=== PATIENT | male | born 1950 | race Caucasian/White ===

== ENCOUNTER 2017-10-27 05:31 | Observation (INO) | payer OTHER ==
[2017-10-19 09:32] VITALS: BP 112/56
[2017-10-25 09:27] LABS: ANION GAP 5 mmol/L (5-15); CHLORIDE 99 mmol/L (98-107); CREATININE 1.14 mg/dL (0.7-1.3)
[~2017-10-27] VITALS: Ht 182.9 cm; Wt 90.0 kg
[~2017-10-27 05:31] MED LIST: ASPI-496 PO; ATOR10TA9 PO; CYCL-259 PO; LISI5TAB7 PO; METF500T5 PO; OXYC1TAB7 PO; PREG75CA PO
[2017-10-27] MEDS ORDERED: LIDOCAINE-MPF 1%, 2ML INFIL ONE (06:30)
[2017-10-27] MEDS ORDERED: METO-99 PO (06:41)
[2017-10-27] MEDS: LACTATED RINGERS 1,000 ML IV SCH ×2 (06:54→12:08)
[2017-10-27] MEDS ORDERED: BACITRACIN 50,000 UNIT ONE (07:09)
[2017-10-27] MEDS ORDERED: BUPIVACAINE/PF 0.5% ONE (07:09)
[2017-10-27] MEDS ORDERED: THROMBIN 5,000 UNIT VIAL TP ONE (07:09)
[2017-10-27] MEDS ORDERED: EPINEPHRINE 1 MG/ML, 1ML ONE (07:10)
[2017-10-27] MEDS ORDERED: FENTANYL PF 250 MCG/5ML ONE (07:12)
[2017-10-27] MEDS ORDERED: MIDAZOLAM 1 MG/ML, 2ML ONE (07:12)
[2017-10-27] MEDS ORDERED: OxyconTIN ER 20 MG TAB.ER ONE ×2 (07:37→10:16)
[2017-10-27] MEDS ORDERED: ACETAMINOPHEN 500 MG TABLET ONE ×2 (07:38→10:16)
[2017-10-27] MEDS ORDERED: GABAPENTIN 300 MG CAPSULE ONE ×2 (07:38→10:16)
[2017-10-27] MEDS ORDERED: CEFAZOLIN 1,000 MG ONE (07:45)
[2017-10-27] MEDS ORDERED: PROPOFOL 10 MG/ML, 50ML ONE (07:45)
[2017-10-27] MEDS ORDERED: PROPOFOL 10 MG/ML, 20ML ONE (07:45)
[2017-10-27] MEDS ORDERED: METOPROLOL 1 MG/ML, 5ML ONE (07:45)
[2017-10-27] MEDS ORDERED: SUCCINYLCHOLINE 20 MG/ML, 10ML ONE (07:45)
[2017-10-27] MEDS ORDERED: DEXAMETHASONE 4 MG/ML, 1ML ONE (07:45)
[2017-10-27] MEDS ORDERED: ONDANSETRON 2MG/ML, 2ML ONE (07:45)
[2017-10-27] MEDS ORDERED: EPHEDRINE 50 MG/ML, 1ML ONE (07:45)
[2017-10-27] MEDS ORDERED: ALBUTEROL SULFATE 2.5 MG/3 ML NPPB PRN (09:00)
[2017-10-27] MEDS ORDERED: OXYcodone 5 MG/5 ML ORAL.SOL UDC PO PRN (09:00)
[2017-10-27] MEDS ORDERED: LORazepam 2 MG/ML, 1ML IVPush PRN (09:00)
[2017-10-27] MEDS ORDERED: MEPERIDINE/PF 25MG/0.5ML IVPush PRN (09:00)
[2017-10-27] MEDS ORDERED: hydrALAzine 20 MG/ML, 1ML IV PRN (09:00)
[2017-10-27] MEDS ORDERED: LABETALOL 5MG/ML, 20ML IV PRN ×2 (09:00→13:00)
[2017-10-27] MEDS ORDERED: FENTANYL PF 100 MCG/2ML IV PRN (09:00)
[2017-10-27] MEDS ORDERED: HYDROmorphone 1 MG/ML, 1ML IV PRN (09:00)
[2017-10-27] MEDS ORDERED: PROMETHAZINE 25 MG/ML, 1ML IV PRN (09:00)
[2017-10-27] MEDS ORDERED: OXYcodone 5 MG/5 ML ORAL.SOL UDC ONE (10:05)
[2017-10-27] MEDS ORDERED: CYCLOBENZAPRINE 10 MG TABLET ONE (10:05)
[2017-10-27] MEDS ORDERED: CYCLOBENZAPRINE 10 MG TABLET PO ONE (10:30)
[2017-10-27] MEDS ORDERED: MEPERIDINE/PF 50 MG/ML ONE (10:42)
[2017-10-27] MEDS ORDERED: CYCLOBENZAPRINE 10 MG TABLET PO PRN (13:00)
[2017-10-27] MEDS ORDERED: OXYcodone/APAP 5/325MG TABLET PO PRN (13:00)
[2017-10-27] MEDS ORDERED: BISACODYL 10 MG SUPP PR PRN (13:00)
[2017-10-27] MEDS ORDERED: MAGNESIUM HYDROXIDE 8%, 30ML UDC PO PRN (13:00)
[2017-10-27] MEDS ORDERED: NS + 20MEQ KCL 1,000 ML IV SCH (13:00)
[2017-10-27] MEDS ORDERED: METHOCARBAMOL 750 MG TABLET PO PRN (13:00)
[2017-10-27] MEDS ORDERED: DIPHENHYDRAMINE 50 MG/ML, 1ML IVPush PRN (13:00)
[2017-10-27] MEDS ORDERED: ONDANSETRON 2MG/ML, 2ML IV PRN (13:00)
[2017-10-27] MEDS ORDERED: MEPERIDINE/PF 100 MG/ML IM PRN (13:00)
[2017-10-27 15:02] VITALS: BP 109/73
[2017-10-27] MEDS: CEFAZOLIN PMX 1GM/50ML 50 ML IVPB SCH (16:07)
[2017-10-27] MEDS ORDERED: metFORMIN 500 MG TABLET PO SCH ×3 (17:00→21:00)
[2017-10-27] MEDS: METOPROLOL TARTRATE 100 MG TABLET PO SCH (18:00)
[2017-10-27 20:02] VITALS: BP 146/85
[2017-10-27] MEDS: PREGABALIN 75 MG CAPSULE PO SCH (20:05)
[2017-10-27] MEDS ORDERED: ATORVASTATIN 10 MG TABLET PO SCH (21:00)
[2017-10-28] MEDS: CEFAZOLIN PMX 1GM/50ML 50 ML IVPB SCH (00:07)
[2017-10-28 05:05] VITALS: BP 164/79
[2017-10-28] MEDS: METOPROLOL TARTRATE 100 MG TABLET PO SCH (05:23)
[2017-10-28 05:30] LABS: CHLORIDE 103 mmol/L (98-107)
[2017-10-28 05:34] LABS: BASOPHILS # (AUTO) 0.04 x10^3/uL (0-0.1); BASOPHILS % (AUTO) 0 % (0-1); EOSINOPHILS % (AUTO) 0 % (1-7); LYMPHOCYTES # (AUTO) 1.64 x10^3/uL (1-3.4); LYMPHOCYTES % (AUTO) 10 % (22-44); MD NO; MEAN CORPUSCULAR HEMOGLOBIN 31.3 pg (27.5-34.5); MEAN CORPUSCULAR VOLUME 91.9 fL (81-97); MEAN PLATELET VOLUME 7.7 fL (7.4-10.4); MONOCYTES % (AUTO) 7 % (2-9); NEUTROPHILS # (AUTO) 13.22 x10^3/uL (1.8-6.8); NEUTROPHILS % (AUTO) 83 % (42-75); PLATELET COUNT 252 x10^3/uL (130-400); RED BLOOD COUNT 4.63 x10^6/uL (4.38-5.82); RED CELL DISTRIBUTION WIDTH 13.4 % (9.4-14.8)
[2017-10-28 05:35] LABS: ANION GAP 8 mmol/L (5-15); CALCIUM 8.6 mg/dL (8.5-10.1); CREATININE 0.99 mg/dL (0.7-1.3)
[2017-10-28 07:18] VITALS: BP 132/80
[2017-10-28] MEDS ORDERED: metFORMIN 500 MG TABLET PO SCH (08:00)
[2017-10-28] MEDS ORDERED: OXYC-302 PO (08:17)
[2017-10-28] MEDS ORDERED: LISINOPRIL 10 MG TABLET PO SCH (09:00)
[2017-10-28] MEDS ORDERED: SENNA/DOCUSATE TABLET PO SCH (09:00)
[2017-10-28] MEDS: PREGABALIN 75 MG CAPSULE PO SCH (10:21)
[2017-10-28 11:29] VITALS: BP 122/78
== END 2017-10-28 12:54 | disposition home or self-care (01) ==
LOC: OUT 05:31 → 4NOR 11:51 → OUT 11:55 → 4NOR 11:56 → DCLOUNGE 10-28 12:27
PROVIDERS: ADMIT Neurological Surgery; ATTEND Neurological Surgery
DX: M47.22 Other spondylosis with radiculopathy, cervical region (principal); M48.02 Spinal stenosis, cervical region; R13.10 Dysphagia, unspecified; F17.210 Nicotine dependence, cigarettes, uncomplicated
CPT/HCPCS: 20936; 22551; 22552; 22853; 36415; 72040; 80048; 82962; 85025; 95938; 95941; 96365; 96375; 96376; 97161; C1713; C1776; G0378; J0171; J0330; J0690; J1100; J2175; J2250; J2270; J2405; J2704; J3010; J3480; J3490; J7120